=== PATIENT | male | born 1975 | race American Indian/Alaskan Native ===

== ENCOUNTER 2017-12-12 10:09 | Emergency (ER) | payer OTHER ==
[2017-12-12 10:24] VITALS: BP 102/76
[2017-12-12] MEDS ORDERED: MOTRIN PO ONE (10:25)
--- NOTE | 2017-12-12 12:34 | Emergency Department Report ---
ED Headache HPI - General Chief Complaint: Headache Stated Complaint: HEADACHE Time Seen by Provider: 12/12/17 12:12 - History of Present Illness Initial Comments: Patient is a 42-year-old [place] male who is presenting with headache. Patient states that started out as some pain in the in his left bottom molar and posterior. Patient denies any fevers chills states the headache is 9 out of 10 in severity. Patient states is radiating to the left ear and into the neck. Allergies/Adverse Reactions: Allergies No Known Allergies Allergy (Unverified 12/15/14 09:35) Home Medications: Ambulatory Orders Clindamycin [Clindamycin CAP] 300 mg PO Q8H 7 Days cap 12/12/17 HYDROcodone/APAP 5-325 [[place] 5/325] 1 each PO Q4HR PRN #12 tablet 12/12/17 Ibuprofen [Motrin] 800 mg PO Q8HR PRN #20 tablet 12/12/17 ED Review of Systems ROS: Stated complaint: HEADACHE Other details as noted in HPI Comment: All other systems reviewed and negative ED Past Medical Hx - Past Medical History Previous Medical History?: No Additional medical history: Head lac - Surgical History Past Surgical History?: No - Social History Smoking Status: Current Every Day Smoker Substance Use Type: Alcohol - Medications Home Medications: Home Medications Medication Instructions Recorded Confirmed Last Taken Type Clindamycin [Clindamycin CAP] 300 mg PO Q8H 7 Days cap 12/12/17 Unknown Rx HYDROcodone/APAP 5-325 [[place] 1 each PO Q4HR PRN #12 tablet 12/12/17 Unknown Rx 5/325] Ibuprofen [Motrin] 800 mg PO Q8HR PRN #20 tablet 12/12/17 Unknown Rx ED Physical Exam - General Limitations: No Limitations General appearance: alert, in distress - Head Head exam: Present: atraumatic, normocephalic - Eye Eye exam: Present: normal appearance - ENT ENT exam: Present: mucous membranes moist, other (vision is a large open cavity to tooth #17 with gum swelling. There is some mild facial swelling overlying this area as well.) - Neck Neck exam: Present: normal inspection - Respiratory Respiratory exam: Present: normal lung sounds bilaterally. Absent: respiratory distress - Cardiovascular Cardiovascular Exam: Present: regular rate, normal rhythm. Absent: systolic murmur, diastolic murmur, rubs, gallop - GI/Abdominal GI/Abdominal exam: Present: soft, normal bowel sounds - Rectal Rectal exam: Present: deferred - Extremities Exam Extremities exam: Present: normal inspection - Back Exam Back exam: Present: normal inspection - Neurological Exam Neurological exam: Present: alert, oriented X3 - Psychiatric Psychiatric exam: Present: normal affect, normal mood - Skin Skin exam: Present: warm, dry, intact, normal color. Absent: rash ED Course Vital Signs 12/12/17 10:18 Temperature 98.8 F Pulse Rate 99 H Respiratory 18 Rate Blood Pressure 102/76 O2 Sat by Pulse 98 Oximetry ED Medical Decision Making - Medical Decision Making Patient will be started on antibiotics for presumed dental abscess be discharged home. Critical care attestation.: If time is entered above; I have spent that time in minutes in the direct care of this critically ill patient, excluding procedure time. ED Disposition Clinical Impression: Dental abscess Disposition: - TO HOME OR SELFCARE Is pt being admited?: No Does the pt Need Aspirin: No Condition: Stable Instructions: Dental Abscess (ED) Prescriptions: Clindamycin [Clindamycin CAP] 300 mg PO Q8H 7 Days cap HYDROcodone/APAP 5-325 [[place] 5/325] 1 each PO Q4HR PRN #12 tablet PRN Reason: Pain Ibuprofen [Motrin] 800 mg PO Q8HR PRN #20 tablet PRN Reason: Pain Referrals: PRIMARY CARE, [Primary Care Provider] - 3-5 Days Forms: Work/School Release Form(ED)
== END 2017-12-12 12:48 | disposition home or self-care (01) ==
LOC: ED 10:09
DX: K04.7 Periapical abscess without sinus (principal); F17.200 Nicotine dependence, unspecified, uncomplicated
CPT/HCPCS: 99282